=== PATIENT | male | born 1990 | race Caucasian/White ===

== ENCOUNTER 2022-07-20 16:46 | Emergency (ER) | payer SELFPAY ==
[~2022-07-20] VITALS: Ht 182.8 cm; Wt 81.6 kg
[2022-07-20] MEDS ORDERED: fentaNYL INJ 100 MCG/2 ML AMP IVP ONE (17:15)
[2022-07-20] MEDS ORDERED: ONDANSETRON 4 MG/2 ML (SDV) Z0FRAN IVP ONE (17:15)
[2022-07-20] MEDS ORDERED: HYOSCYAMINE 0.125 MG (LEVSIN) TAB SL ONE (17:30)
[2022-07-20] MEDS ORDERED: LACTATED RINGERS 1,000 ML IV ONE (17:30)
[2022-07-20 17:34] LABS: BILIRUBIN,URINE NEGATIVE (NEGATIVE); CLARITY,URINE CLEAR; COLOR,URINE YELLOW; GLUCOSE, URINE (UA) NEGATIVE (NEGATIVE); KETONES,URINE NEGATIVE (NEGATIVE); LEUKOCYTE ESTERASE ,URINE NEGATIVE (NEGATIVE); NITRITE,URINE NEGATIVE (NEGATIVE); PROTEIN,URINE 1+ (NEGATIVE)
[2022-07-20 17:35] LABS: BASOPHILS % (AUTO) 0 % (0-10); EOSINOPHILS % (AUTO) 0 % (0-10); HEMATOCRIT 46 % (40-54); HEMOGLOBIN 15.2 g/dL (13.3-17.7); LYMPHOCYTES # (AUTO) 0.8 10^3/uL (1.0-4.0); LYMPHOCYTES % (AUTO) 8 % (12-44); MEAN CORPUSCULAR HEMOGLOBIN 27 pg (25-34); MEAN CORPUSCULAR HGB CONC 33 g/dL (32-36); MEAN CORPUSCULAR VOLUME 82 fL (80-99); MEAN PLATELET VOLUME 11.1 fL (9.0-12.2); MONOCYTES # (AUTO) 0.3 10^3/uL (0.0-1.0); MONOCYTES % (AUTO) 4 % (0-12); NEUTROPHILS # (AUTO) 7.9 10^3/uL (1.8-7.8); NEUTROPHILS % (AUTO) 87 % (42-75); PLATELET COUNT 202 10^3/uL (130-400); WHITE BLOOD COUNT 9.1 10^3/uL (4.3-11.0)
[2022-07-20 17:37] LABS: ALBUMIN 4.7 GM/DL (3.2-4.5)
[2022-07-20 17:38] LABS: CHLORIDE 105 MMOL/L (98-107); POTASSIUM 4.1 MMOL/L (3.6-5.0); SODIUM 142 MMOL/L (135-145)
[2022-07-20 17:39] LABS: CALCIUM 9.4 MG/DL (8.5-10.1)
[2022-07-20 17:40] LABS: GLUCOSE 106 MG/DL (70-105); TOTAL PROTEIN 7.3 GM/DL (6.4-8.2)
[2022-07-20 17:41] LABS: CARBON DIOXIDE 25 MMOL/L (21-32)
[2022-07-20 17:42] LABS: BILIRUBIN,TOTAL 0.5 MG/DL (0.1-1.0)
[2022-07-20 17:44] LABS: ALKALINE PHOSPHATASE 40 U/L (40-136); CREATININE SERUM 1.14 MG/DL (0.60-1.30); GFR ESTIMATED 88
[2022-07-20 17:45] LABS: BUN/CREATININE RATIO 8
[2022-07-20 17:46] LABS: MAGNESIUM 1.9 MG/DL (1.6-2.4)
[2022-07-20 17:47] LABS: ALANINE AMINOTRANSFERASE 22 U/L (0-55); LIPASE 18 U/L (8-78)
[2022-07-20 17:55] LABS: BACTERIA,URINE NEGATIVE /HPF
[2022-07-20 18:00] LABS: BAND NEUTROPHILS 0 %; LYMPHOCYTES % (MANUAL) 15 %; NEUTROPHILS % (MANUAL) 83 %
[2022-07-20 18:02] LABS: BASOPHILS % (MANUAL) 0 %; EOSINOPHILS % (MANUAL) 0 %; MONOCYTES % (MANUAL) 2 %; RBC MORPH NORMAL
[2022-07-20] MEDS ORDERED: HYOS0.1283 SL (18:38)
--- NOTE | 2022-07-20 18:40 | ED Abdominal Pain ---
General Chief Complaint: Abdominal/GI Problems Stated Complaint: ABD PAIN Nursing Triage Note: ABD PAIN STARTED THIS MORNING, WITH NAUSEA AND LEFT LOWER QUADRENT PAIN, LBM TODAY WITH 2 DIARRHEA STOOLS TODAY. DENIES FEVER. Source of Information: Patient Exam Limitations: No Limitations History of Present Illness Date Seen by Provider: Jul 20, 2022 Time Seen by Provider: 17:15 Initial Comments This 32-year-old gentleman presents to the emergency room with left-sided abdominal pain that started this morning. He has intermittent waves of pain accompanied by diarrhea and vomiting. He denies any fever. He has had no respiratory symptoms such as cough or shortness of breath. Urine has been dark. He took some Zofran, Gas-X, and Pepto-Bismol at home but he is still nauseated and still experiencing the pain. Allergies and Home Medications Allergies Coded Allergies: No Known Drug Allergies (Unverified , 07/20/22) Patient Home Medication List Home Medication List Reviewed: Yes Hyoscyamine Sulfate (Levsin-Sl) 0.125 Mg Tab.subl, 1-2 MG SL Q4H PRN for CRAMPS Prescribed by: DAVID INMAN on 07/20/22 1838 Review of Systems Review of Systems Constitutional: no symptoms reported EENTM: No Symptoms Reported Respiratory: No Symptoms Reported Cardiovascular: No Symptoms Reported Gastrointestinal: See HPI Genitourinary: See HPI Musculoskeletal: no symptoms reported Skin: no symptoms reported Psychiatric/Neurological: No Symptoms Reported Endocrine: No Symptoms Reported Hematologic/Lymphatic: No Symptoms Reported Past Rlirqbg-Vsoipz-Jqrupq Hx Patient Social History Tobacco Use?: No Use of E-Cig and/or Vaping dev: No Substance use?: No Alcohol Use?: Yes Alcohol type: Beer, Hard Liquor Alcohol Frequency: Once in a while Pt feels they are or have been: No Immunizations Up To Date Influenza Vaccine Up-to-Date: No; Not Current First/Initial COVID19 Vaccinat: DECLINED Past Medical History Surgery/Hospitalization HX: DENIES LEFT ACL SURG Surgeries: Yes Orthopedic (ACL repair) Respiratory: No Cardiac: No Neurological: No Genitourinary: No Gastrointestinal: No Musculoskeletal: No Endocrine: No HEENT: No Cancer: No Did You Recieve Any Treatments: No Psychosocial: No Integumentary: No Physical Exam Vital Signs Vital Signs - First Documented 07/20/22 16:54 Temp 37.0 Pulse 77 Resp 16 B/P (MAP) 134/87 (103) Pulse Ox 97 O2 Delivery Room Air Capillary Refill : Less Than 3 Seconds Height/Weight/BMI Height: '" Weight: lbs. oz. kg; 24.00 BMI Method: General Appearance: WD/WN, no apparent distress HEENT: PERRL/EOMI, normal ENT inspection, pharynx normal Neck: normal inspection Respiratory: lungs clear, normal breath sounds, no respiratory distress Cardiovascular: regular rate, rhythm, no edema, no murmur Gastrointestinal: normal bowel sounds, soft; No distended; tenderness (Moderate in the left abdomen, primarily left lower quadrant) Extremities: normal inspection, no pedal edema Neurologic/Psychiatric: manager fund II-XII nml as tested, no motor/sensory deficits, alert, normal mood/affect, oriented x 3 Skin: normal color, warm/dry Progress/Results/Core Measures Results/Orders Lab Results Laboratory Tests Test 07/20/22 17:05 Range/Units White Blood Count 9.1 4.3-11.0 10^3/uL Red Blood Count 5.58 H 4.30-5.52 10^6/uL Hemoglobin 15.2 13.3-17.7 g/dL Hematocrit 46 40-54 % Mean Corpuscular Volume 82 80-99 fL Mean Corpuscular Hemoglobin 27 25-34 pg Mean Corpuscular Hemoglobin Concent 33 32-36 g/dL Red Cell Distribution Width 12.3 10.0-14.5 % Platelet Count 202 130-400 10^3/uL Mean Platelet Volume 11.1 9.0-12.2 fL Immature Granulocyte % (Auto) 0 % Neutrophils (%) (Auto) 87 H 42-75 % Lymphocytes (%) (Auto) 8 L 12-44 % Monocytes (%) (Auto) 4 0-12 % Eosinophils (%) (Auto) 0 0-10 % Basophils (%) (Auto) 0 0-10 % Neutrophils # (Auto) 7.9 H 1.8-7.8 10^3/uL Lymphocytes # (Auto) 0.8 L 1.0-4.0 10^3/uL Monocytes # (Auto) 0.3 0.0-1.0 10^3/uL Eosinophils # (Auto) 0.0 0.0-0.3 10^3/uL Basophils # (Auto) 0.0 0.0-0.1 10^3/uL Immature Granulocyte # (Auto) 0.0 0.0-0.1 10^3/uL Neutrophils % (Manual) 83 % Lymphocytes % (Manual) 15 % Monocytes % (Manual) 2 % Eosinophils % (Manual) 0 % Basophils % (Manual) 0 % Band Neutrophils 0 % Blood Morphology Comment NORMAL Urine Color YELLOW Urine Clarity CLEAR Urine pH 8.0 5-9 Urine Specific [place] 1.015 L 1.016-1.022 Urine Protein 1+ H NEGATIVE Urine Glucose (UA) NEGATIVE NEGATIVE Urine Ketones NEGATIVE NEGATIVE Urine Nitrite NEGATIVE NEGATIVE Urine Bilirubin NEGATIVE NEGATIVE Urine Urobilinogen 0.2 < = 1.0 MG/DL Urine Leukocyte Esterase NEGATIVE NEGATIVE Urine RBC (Auto) NEGATIVE NEGATIVE Urine RBC NONE /HPF Urine WBC NONE /HPF Urine Squamous Epithelial Cells NONE /HPF Urine Crystals NONE /LPF Urine Bacteria NEGATIVE /HPF Urine Casts NONE /LPF Urine Mucus NEGATIVE /LPF Urine Culture Indicated NO Sodium Level 142 135-145 MMOL/L Potassium Level 4.1 3.6-5.0 MMOL/L Chloride Level 105 98-107 MMOL/L Carbon Dioxide Level 25 21-32 MMOL/L Anion Gap 12 5-14 MMOL/L Blood Urea Nitrogen 9 7-18 MG/DL Creatinine 1.14 0.60-1.30 MG/DL Estimat Glomerular Filtration Rate 88 BUN/Creatinine Ratio 8 Glucose Level 106 H 70-105 MG/DL Calcium Level 9.4 8.5-10.1 MG/DL Corrected Calcium 8.5-10.1 MG/DL Magnesium Level 1.9 1.6-2.4 MG/DL Total Bilirubin 0.5 0.1-1.0 MG/DL Aspartate Amino Transf (AST/SGOT) 18 5-34 U/L Alanine Aminotransferase (ALT/SGPT) 22 0-55 U/L Alkaline Phosphatase 40 40-136 U/L C-Reactive Protein High Sensitivity 0.10 0.00-0.50 MG/DL Total Protein 7.3 6.4-8.2 GM/DL Albumin 4.7 H 3.2-4.5 GM/DL Lipase 18 8-78 U/L My Orders Orders - DAVID SCHREIBER MD Ondansetron Injection (Zofran Injectio (07/20/22 17:15) Fentanyl Inj (Sublimaze Injection) (07/20/22 17:15) Ed Iv/Invasive Line Start (07/20/22 17:14) Lactated Ringers (Lr 1000 Ml Iv Solution (07/20/22 17:30) Cbc With Automated Diff (07/20/22 17:22) Comprehensive Metabolic Panel (07/20/22 17:22) Hs C Reactive Protein (07/20/22 17:22) Lipase (07/20/22 17:22) Magnesium (07/20/22 17:22) Ua Culture If Indicated (07/20/22 17:22) Hyoscyamine Sl Tablet (Levsin Sl Tablet) (07/20/22 17:30) Manual Differential (07/20/22 17:05) Ketorolac Injection (Toradol Injection) (07/20/22 18:45) Medications Given in ED Vital Signs/I&O 07/20/22 07/20/22 16:54 19:12 Temp 37.0 36.9 Pulse 77 60 Resp 16 16 B/P (MAP) 134/87 (103) 144/80 Pulse Ox 97 98 O2 Delivery Room Air Room Air Blood Pressure Mean: 103 Progress Progress Note : Progress Note Labs were unremarkable. Symptoms improved with Zofran, Levsin, fentanyl, and IV hydration. He was given Toradol additionally prior to discharge for additional pain treatment. I do not believe further evaluation with imaging is needed at this time. I discussed risks and benefits of the radiation exposure of CT scan with patient and his mother. They are agreeable to cautious observation at home at this time. Departure Impression Primary Impression: Nausea vomiting and diarrhea Additional Impression: Left sided abdominal pain Disposition: 01 HOME, SELF-CARE Condition: Improved Departure-Patient Inst. Decision time for Depature: 18:35 Referrals: NO,LOCAL PHYSICIAN (PCP/Family) Primary Care Physician Patient Instructions: Abdominal Pain, Adult ED Add. Discharge Instructions: Start with a clear liquid diet and gradually advance your diet with small quantities of bland food as tolerated. You may take Tylenol (acetaminophen) up to 1000 mg every 6 hours as needed for pain. Add ibuprofen up to 600 mg every 6 hours as needed for additional pain relief. Use Zofran (ondansetron) as prescribed for nausea and vomiting and Levsin (hyoscyamine) as prescribed for bowel cramping and diarrhea. Return to the ER if you have worsening symptoms or develop new significant symptoms such as blood in your stools, fever, etc. All discharge instructions reviewed with patient and/or family. Voiced understanding. Scripts Hyoscyamine Sulfate (Levsin-Sl) 0.125 Mg Tab.subl 1-2 MG SL Q4H PRN for CRAMPS, #10 TAB Prov: DAVID SCHREIBER MD 07/20/22 DAVID SCHREIBER MD Jul 20, 2022 18:40
[2022-07-20] MEDS ORDERED: KETOROLAC 30 MG/ML VIAL IVP ONE (18:45)
[2022-07-20 19:12] VITALS: BP 144/80
== END 2022-07-20 19:12 | disposition home or self-care (01) ==
LOC: EDUNIT# 16:46 → ER 16:50
DX: R10.32 Left lower quadrant pain (principal); R11.2 Nausea with vomiting, unspecified; R19.7 Diarrhea, unspecified; Z28.310 Unvaccinated for COVID-19
CPT/HCPCS: 36415; 80053; 81000; 83690; 83735; 85007; 85027; 86141